=== PATIENT | male | born 2000 | race Caucasian/White ===

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

== ENCOUNTER 2021-06-28 17:55 | Emergency (ER) | payer OTHER ==
[~2021-06-28] VITALS: Ht 167.6 cm; Wt 59.1 kg
[2021-06-28] MEDS ORDERED: NS 1,000 ML IV SCH (18:50)
[2021-06-28] MEDS ORDERED: ONDANSETRON 4MG/2ML VIAL IV ONE (18:50)
[2021-06-28] MEDS ORDERED: fentaNYL 100 MCG/2 ML INJECTION IV ONE (19:00)
[2021-06-28 19:45] VITALS: BP 133/65
[2021-06-28 19:48] LABS: RSV AMPLIFICATION NEGATIVE (NEGATIVE)
== END 2021-06-28 19:54 | disposition short-term general hospital (02) ==
LOC: M ED 17:55 → EDBD 17:55 → M ED 19:54
DX: S02.2XXA Fracture of nasal bones, initial encounter for closed fracture (principal); S02.612A Fracture of condylar process of left mandible, initial encounter for closed fracture; S02.5XXB Fracture of tooth (traumatic), initial encounter for open fracture; S02.42XA Fracture of alveolus of maxilla, initial encounter for closed fracture; Y03.0XXA Assault by being hit or run over by motor vehicle, initial encounter; Y92.410 Unspecified street and highway as the place of occurrence of the external cause; Y93.55 Activity, bike riding; Y99.9 Unspecified external cause status
CPT/HCPCS: 70450; 70486; 72125; 73564; 87631; 96361; 96374; 99284; J2405; J3010